=== PATIENT | male | born 1950 ===

== ENCOUNTER 2018-01-02 05:20 | Day surgery (SDC) | payer OTHER | END 2018-01-02 19:50 | disposition home or self-care (01) | LOC: CIR.AMB 05:20 | DX: C67.9 Malignant neoplasm of bladder, unspecified (principal); N30.20 Other chronic cystitis without hematuria ==

== ENCOUNTER 2019-10-18 04:45 | Day surgery (SDC) | payer OTHER ==
[~2019-10-18 04:45] MED LIST: CATAPRES0.1 MG PO; FORTAMET500 MG PO; HUMULIN 70100 UNIT/2 SQ; HYDRODIURIL12.5 MG PO; NEURONTIN300 MG PO; PLAVIX75 MG PO; PROSCAR5 MG PO; TAMS0.4C PO; ZESTRIL40 M1 PO
== END 2019-10-18 13:15 | disposition home or self-care (01) ==
LOC: CIR.AMB 04:45 → ADM 08:00 → CIR.AMB 08:00
DX: C62.91 Malignant neoplasm of right testis, unspecified whether descended or undescended (principal)

== ENCOUNTER 2020-03-27 16:27 | Outpatient (CLI) | payer OTHER | END 2020-03-27 16:35 | disposition home or self-care (01) | LOC: LAB 16:27 | PROVIDERS: ATTEND Urology | DX: R31.1 Benign essential microscopic hematuria (principal) ==